=== PATIENT | male | born 1975 | race Caucasian/White ===

== ENCOUNTER → 2016-12-13 | Outpatient (CLI) | payer BC ==
--- NOTE | 2016-12-13 16:18 | DI ---
Indication: ITS.REASON: N50.812 LEFT TESTICULAR PAIN PROCEDURE: US TESTICULAR: Encounter: Initial Comparison: None FINDINGS: Both testicles are present in expected location. Bilateral microcalcifications noted. The testicles otherwise demonstrate a homogenous echotexture without intratesticular mass. The right testicle measures 4.5 x 2.0 x 3.3 cm, and the left testicle measures 3.5 x 1.8 x 3.1 cm. Color Doppler imaging demonstrates symmetric, arterial flow throughout both testicles. Normal pulsed Doppler arterial and venous waveforms were obtained from each testicle. Both epididymides are normal without focal mass or hyperemia. No abnormal intrascrotal fluid collections. IMPRESSION: 1. No left inguinal hernia identified. 2. 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 No discrete testicular mass seen on this examination. Follow-up ultrasound in one year lacking new clinical symptoms/palpable abnormality could be considered to ensure stability. .
== END ==
LOC: IMA 15:09
PROVIDERS: ATTEND Family Medicine
DX: N50.89 Other specified disorders of the male genital organs (principal); N50.812 Left testicular pain